=== PATIENT | female | born 1950 | race Caucasian/White ===

== ENCOUNTER 2022-11-06 13:46 | Emergency (ER) | payer OTHER ==
[~2022-11-06] VITALS: Ht 165.1 cm; Wt 167.4 kg
--- NOTE | 2022-11-06 14:02 | NUR ---
C/O OF SHORTNESS OF BREATH SINCE 3DAYS AGO. PT IS A DX PUL EMBOLISM PT WITH MULTIPLE NODULES, SHE IS ON BLD THINNER, LEVENOX THEN CHANGED TO PRADAXA AND ON O2 1.5L AT HOME.
--- NOTE | 2022-11-06 14:07 | NUR ---
EMT AT BEDSIDE THEN PUT ON MONITOR AND POX
--- NOTE | 2022-11-06 14:59 | NUR ---
CALLED [facility] AND OPENED CASE.
--- NOTE | 2022-11-06 15:11 | NUR ---
IV ACCESS DONE 20G RAC,BLD DRAWN AND SENT TO LAB.
[2022-11-06 15:14] LABS: BASOPHILS % (AUTO) 0.5 % (0.0-2.0); EOSINOPHILS % (AUTO) 2.8 % (0.0-6.0); HEMATOCRIT 44 % (33-45); HEMOGLOBIN 13.5 g/dL (11.5-14.8); LYMPHOCYTES # (AUTO) 0.6 K/uL (0.8-4.8); LYMPHOCYTES % (AUTO) 9.9 % (20.0-44.0); MEAN CORPUSCULAR HGB CONC 31 g/dl (31.0-36.0); MEAN CORPUSCULAR VOLUME 99 fL (82-100); MONOCYTES # (AUTO) 0.6 K/uL (0.1-1.30); MONOCYTES % (AUTO) 10.1 % (2.0-12.0); NEUTROPHILS # (AUTO) 4.8 K/uL (1.8-8.9); NEUTROPHILS % (AUTO) 76.7 % (43.0-81.0); PLATELET COUNT (AUTO) 135 K/uL (150-450); RED BLOOD CELL COUNT(AUTO) 4.39 MIL/uL (4.0-5.2); WHITE BLOOD COUNT (AUTO) 6.3 K/uL (4.3-11.0)
[2022-11-06 15:51] LABS: CALCIUM, SERUM 9.6 mg/dL (8.5-10.1); CHLORIDE 99 mmol/L (98-107); CREATININE 0.7 mg/dL (0.6-1.3); GLUCOSE 100 mg/dL (74-106); POTASSIUM 4.8 mmol/L (3.5-5.1); SODIUM SERUM 140 mmol/L (136-145); UREA NITROGEN, BLOOD 21 mg/dL (7-18)
[2022-11-06 15:52] LABS: CARBON DIOXIDE 41 mmol/L (21-32)
[2022-11-06] MEDS ORDERED: FUROSEMIDE 40 MG/4 ML VIAL IV ONE (17:00)
--- NOTE | 2022-11-06 17:30 | NUR ---
PT ACCEPTED FOR TRANSPORT TO [facility]. WAITING FOR FURTHER INFORMATTION.
[2022-11-06] MEDS ORDERED: FUROSEMIDE 40 MG/4 ML VIAL ONE (17:31)
[2022-11-06] MEDS ORDERED: FUROSEMIDE 20 MG/2 ML VIAL ONE (17:31)
--- NOTE | 2022-11-06 17:52 | NUR ---
ivp lasix given and purewick connected to suction
--- NOTE | 2022-11-06 18:58 | NUR ---
DR DURAN GAVE PEER TO PEER WITH TROUT CREEK
--- NOTE | 2022-11-06 19:02 | NUR ---
pt was informed regarding her transfer at [facility], and just waiting for a return call for the room.
--- NOTE | 2022-11-06 21:09 | NUR ---
ACCEPTING PHYSICIAN DR Bhavya OSWALD
--- NOTE | 2022-11-06 21:22 | NUR ---
THERESA GOT ACCEPTED AT [facility]. GOING TO 530 # FOR REPORT: [phone]: DR BUENO ETA: [phone]. PRN [facility]IATRIC
--- NOTE | 2022-11-06 21:35 | NUR ---
REPORT GIVEN TO DULCE MARIA SANTIAGO RN
--- NOTE | 2022-11-06 22:32 | NUR ---
REPORT GIVEN TO JOSE TAYLOR / [facility] FOR TRANSPORT TO
[2022-11-06 22:33] VITALS: BP 137/118; TEMP 98.3
== END 2022-11-06 22:33 | disposition short-term general hospital (02) ==
LOC: ER 13:55
DX: J96.91 Respiratory failure, unspecified with hypoxia (principal); I11.0 Hypertensive heart disease with heart failure; I50.1 Left ventricular failure, unspecified; Z88.2 Allergy status to sulfonamides; Z20.822 Contact with and (suspected) exposure to COVID-19
CPT/HCPCS: 99291; 96374; 87426; 93005; 71045; 85025; 80048; 36415; 84484; 83880; J1940 ×2; C9803

== ENCOUNTER 2023-03-24 14:53 | Emergency (ER) | payer OTHER ==
[~2023-03-24] VITALS: Ht 165.1 cm; Wt 163.3 kg
[2023-03-24] MEDS ORDERED: FUROSEMIDE 40 MG/4 ML VIAL IV ONE (15:30)
[2023-03-24] MEDS ORDERED: ASPIRIN 325 MG TABLET PO ONE (15:30)
[2023-03-24] MEDS ORDERED: NITROGLYCERIN PACKET 1 GM PACKET TD ONE (15:30)
[2023-03-24] MEDS ORDERED: ASPIRIN 325 MG TABLET ONE (15:35)
[2023-03-24] MEDS ORDERED: FUROSEMIDE 40 MG/4 ML VIAL ONE (15:35)
[2023-03-24] MEDS ORDERED: NITROGLYCERIN PACKET 1 GM PACKET ONE (15:35)
[2023-03-24 15:48] LABS: BASOPHILS % (AUTO) 0.5 % (0.0-2.0); EOSINOPHILS # (AUTO) 0.1 K/uL (0.0-0.7); EOSINOPHILS % (AUTO) 0.9 % (0.0-6.0); HEMATOCRIT 38 % (33-45); HEMOGLOBIN 12.2 g/dL (11.5-14.8); LYMPHOCYTES # (AUTO) 0.6 K/uL (0.8-4.8); LYMPHOCYTES % (AUTO) 8.6 % (20.0-44.0); MEAN CORPUSCULAR HEMOGLOBIN 32 PG (26.0-33.0); MEAN CORPUSCULAR HGB CONC 33 g/dl (31.0-36.0); MEAN CORPUSCULAR VOLUME 97 fL (82-100); MONOCYTES # (AUTO) 0.8 K/uL (0.1-1.30); MONOCYTES % (AUTO) 11.7 % (2.0-12.0); NEUTROPHILS # (AUTO) 5.5 K/uL (1.8-8.9); NEUTROPHILS % (AUTO) 78.3 % (43.0-81.0); PLATELET COUNT (AUTO) 183 K/uL (150-450); RED BLOOD CELL COUNT(AUTO) 3.88 MIL/uL (4.0-5.2); RED CELL DISTRIBUTION WIDTH 13.8 % (11.5-15.0)
[2023-03-24 16:07] LABS: D-DIMER 0.87 mg/L(FEU (0.17-0.50); INR 0.97 (0.91-1.10); PARTIAL THROMBOPLASTIN TIME 25.9 SEC (24.3-34.3); PROTHROMBIN TIME 10.3 SECS (9.2-11.1)
[2023-03-24 16:22] LABS: ALANINE AMINOTRANSFERASE 15 U/L (12-78); ALBUMIN 3.2 g/dL (3.4-5.0); BILIRUBIN,DIRECT 0.6 mg/dL (0.0-0.2); CALCIUM, SERUM 9.9 mg/dL (8.5-10.1); CREATININE 0.9 mg/dL (0.6-1.3); GLUCOSE 108 mg/dL (74-106); UREA NITROGEN, BLOOD 22 mg/dL (7-18)
[2023-03-24 16:35] LABS: ALKALINE PHOSPHATASE 90 U/L (46-116); ASPARTATE AMINOTRANSFERASE 19 U/L (15-37); BILIRUBIN,TOTAL 1.3 mg/dL (0.2-1.0); CHLORIDE 92 mmol/L (98-107); POTASSIUM 3.7 mmol/L (3.5-5.1); SODIUM SERUM 139 mmol/L (136-145); TOTAL PROTEIN, SERUM 7.6 g/dL (6.4-8.2)
[2023-03-24 16:40] LABS: CARBON DIOXIDE 47 mmol/L (21-32)
[2023-03-24] MEDS ORDERED: IOHEXOL-350 100 ML VIAL IV ONE (17:13)
[2023-03-24] MEDS ORDERED: IV NS 0.9% 250 ML IV ONE (17:14)
[2023-03-24] MEDS ORDERED: CT SWABBABLE VALVE TRANS SET 1 EA INFUS.SET MC ONE (17:14)
[2023-03-24 19:10] VITALS: TEMP 98.3
[2023-03-24 19:56] LABS: APPEARANCE,URINE SLIGHTLY CLOUDY (CLEAR); BILIRUBIN,URINE 1+ (NEGATIVE); BLOOD, URINE TRACE-INTA Ery/uL (NEGATIVE); COLOR,URINE YELLOW (YELLOW); KETONES,URINE NEGATIVE (NEGATIVE); LEUKOCYTE ESTERASE ,URINE 1+ (NEGATIVE); NITRITE, URINE NEGATIVE (NEGATIVE); PROTEIN,URINE TRACE mg/dl (NEGATIVE); UGLUCOSE NEGATIVE (NEGATIVE)
[2023-03-24 20:07] LABS: ADD URINE CULTURE YES; BACTERIA,URINE 4+ /HPF (None Seen)
[2023-03-24 20:34] VITALS: BP 107/79; O2SAT 99
== END 2023-03-24 22:03 | disposition short-term general hospital (02) ==
LOC: ER 15:18
DX: I11.0 Hypertensive heart disease with heart failure (principal); I50.21 Acute systolic (congestive) heart failure; Z88.2 Allergy status to sulfonamides
CPT/HCPCS: 99291; 96374; 71275; 71045; 93005; 85025; 80048; 87086; 80076; 85378; 81001; 36415; 84484; 85730; 83880; J1940; J7050; Q9967